=== PATIENT | female | born 1990 | race Caucasian/White ===

== ENCOUNTER → 2016-08-24 | Outpatient (CLI) | payer OTHER ==
--- NOTE | 2016-08-24 18:06 | US ---
EXAMINATION TYPE: US transvaginal DATE OF EXAM: 08/24/2016 COMPARISON: CT in [facility] CLINICAL HISTORY: N94.9 adnexal mass History of endometriosis. Patient had left oophorectomy due to large endometrioma, she later had laparoscopy confirming that raffi ogden doesn't have a left ovary, with removal of additional endometriosis. TECHNIQUE: Transvaginal (TV) Date of LMP: Patient unsure, irregular EXAM MEASUREMENTS: Uterus: 6.9 x 3.5 x 3.0 cm Endometrial Stripe: 0.9 cm Right Ovary: 2.4 x 2.0 x 2.0 cm Left Ovary: not visualized 1. Uterus: Retroverted wnl 2. Endometrium: wnl 3. Right Ovary: wnl, adjacent to left ovary is ff and tubular structure in ff possibly bowel? not p eristalsing 4. Left adnexa: Cystic structure measuring 8.3 x 7.0 x 7.4 5. Bilateral Adnexa: left adnexa cyst, ff in right adnexa 6. Posterior cul-de-sac: wnl IMPRESSION: There is is a small amount of free fluid on the right adnexal region. There is a 8 cm sim ple cyst in the left adnexa. Normal uterus and endometrium. There is a complex 6 cm mass in the left adnexa on the old ultrasound of 08/15/2014 that is not present on today's exam. The largest cyst is ne w.
== END | disposition home or self-care (01) ==
LOC: RADUSMAIN 16:32
PROVIDERS: ATTEND Family Medicine
DX: N85.8 Other specified noninflammatory disorders of uterus (principal)
CPT/HCPCS: 76830